=== PATIENT | male | born 1970 | race Caucasian/White ===

== ENCOUNTER 2023-08-03 06:54 | Day surgery (SDC) | payer BC ==
[~2023-08-03] VITALS: Ht 177.8 cm; Wt 127.2 kg
[2023-08-03] MEDS ORDERED: OMEP20ER (10:32)
[2023-08-03 12:29] VITALS: BP 129/96
== END 2023-08-03 12:40 | disposition home or self-care (01) ==
LOC: ORSCSDS 06:54
PROVIDERS: Surgery
PROC: 0DBK8ZX Excision of Ascending Colon, Via Natural or Artificial Opening Endoscopic, Diagnostic (ICD-10-PCS; principal; 2023-08-03 11:30)
DX: Z12.11 Encounter for screening for malignant neoplasm of colon (principal); D12.2 Benign neoplasm of ascending colon; E66.01 Morbid (severe) obesity due to excess calories; Z68.41 Body mass index [BMI] 40.0-44.9, adult; K64.1 Second degree hemorrhoids
CPT/HCPCS: 88305; J2001; J2704; J7120